=== PATIENT | male | born 1985 | race Caucasian/White ===

== ENCOUNTER 2022-06-27 19:12 | Emergency (ER) | payer SELFPAY ==
--- NOTE | 2022-06-27 19:55 | NUR ---
CALLED TO TRIAGE NO ANSWER
--- NOTE | 2022-06-27 20:08 | NUR ---
STILL NO ANSWER WHEN CALLED FOR TRIAGE
== END 2022-06-27 20:08 | disposition left against medical advice (07) ==
LOC: ER 19:14
DX: Z53.21 Procedure and treatment not carried out due to patient leaving prior to being seen by health care provider (principal)